=== PATIENT | female | born 1955 | race Caucasian/White ===

== ENCOUNTER → 2024-01-12 13:29 | Outpatient (REF) | payer MEDICARE, SELFPAY | LOC: WDC 13:29 | PROVIDERS: ATTENDING PHYSICIAN Family Medicine | DX: Z12.31 Encounter for screening mammogram for malignant neoplasm of breast (principal); R92.8 Other abnormal and inconclusive findings on diagnostic imaging of breast | CPT/HCPCS: 76642; 77063; 77067 ==

== ENCOUNTER → 2024-03-21 16:34 | Outpatient (REF) | payer MEDICARE, SELFPAY | LOC: HWRAD 16:34 | PROVIDERS: ATTENDING PHYSICIAN Family Medicine | DX: M79.644 Pain in right finger(s) (principal) | CPT/HCPCS: 73140 ==

== ENCOUNTER → 2024-07-11 09:57 | Outpatient (REF) | payer MEDICARE, SELFPAY | LOC: WDC 09:57 | PROVIDERS: ATTENDING PHYSICIAN Family Medicine | DX: R92.30 Dense breasts, unspecified (principal); R92.8 Other abnormal and inconclusive findings on diagnostic imaging of breast | CPT/HCPCS: 76641 ==

== ENCOUNTER → 2024-10-03 13:21 | Outpatient (REF) | payer MEDICARE, SELFPAY | LOC: HWRCS 13:21 | PROVIDERS: ATTENDING PHYSICIAN Internal Medicine Interventional Cardiology; FAMILY PHYSICIAN Family Medicine | DX: I48.0 Paroxysmal atrial fibrillation (principal) | CPT/HCPCS: 93306 ==

== ENCOUNTER → 2024-11-28 10:34 | Outpatient (REF) | payer MEDICARE, SELFPAY | LOC: HWRAD 10:34 | PROVIDERS: ATTENDING PHYSICIAN Family Medicine | DX: M85.80 Other specified disorders of bone density and structure, unspecified site (principal); M85.89 Other specified disorders of bone density and structure, multiple sites | CPT/HCPCS: 77080 ==

== ENCOUNTER → 2024-12-21 11:10 | Outpatient (REF) | payer MEDICARE, SELFPAY | LOC: HWRAD 11:10 | PROVIDERS: ATTENDING PHYSICIAN Nurse Practitioner Family; FAMILY PHYSICIAN Family Medicine | DX: R05.3 Chronic cough (principal) | CPT/HCPCS: 71046 ==

== ENCOUNTER → 2025-01-12 13:17 | Outpatient (REF) | payer MEDICARE, SELFPAY | LOC: WDC 13:17 | PROVIDERS: ATTENDING PHYSICIAN Family Medicine | DX: Z12.31 Encounter for screening mammogram for malignant neoplasm of breast (principal) | CPT/HCPCS: 77063; 77067 ==

== ENCOUNTER → 2025-07-19 16:43 | Outpatient (REF) | payer MEDICARE, SELFPAY | LOC: PAVMRI 16:43 | PROVIDERS: FAMILY PHYSICIAN Family Medicine | DX: M26.622 Arthralgia of left temporomandibular joint (principal) | CPT/HCPCS: 70336 ==

== ENCOUNTER → 2025-07-20 12:16 | Outpatient (REF) | payer MEDICARE, SELFPAY | LOC: RCS 12:16 | PROVIDERS: ATTENDING PHYSICIAN Internal Medicine Cardiovascular Disease; FAMILY PHYSICIAN Family Medicine | DX: Z01.818 Encounter for other preprocedural examination (principal); I48.0 Paroxysmal atrial fibrillation | CPT/HCPCS: 93017; 93350 ==